=== PATIENT | female | born 1980 | race Caucasian/White ===

== ENCOUNTER 2018-06-23 22:02 | Inpatient (IN) | payer BC ==
[~2018-06-23 22:02] MED LIST: Bupivacaine/Epinephrine 0.25% 30 ML VIAL ONE
[2018-06-23 22:55] LABS: Amnisure Internal Control QC ACCEPTABLE (ACCEPTABLE); Amnisure Test No Membranes Rupture (No Rupture)
[2018-06-23] MEDS ORDERED: Ondansetron PF 4 MG/2 ML Vial IVP PRN (23:15)
[2018-06-23] MEDS ORDERED: Acetaminophen 500 MG TAB PO PRN (23:15)
[2018-06-23] MEDS ORDERED: Lidocaine 1% (PF) 30 ML VIAL SC PRN (23:15)
[2018-06-23] MEDS ORDERED: NS / Oxytocin 40 units/1000ml 1,000 ML IV PRN (23:15)
[2018-06-23] MEDS ORDERED: Promethazine HCl 25 MG/ML VIAL IM PRN (23:15)
[2018-06-23 23:25] LABS: Hemoglobin 12.4 g/dL (12.0-16.0); Mean Corpuscular HGB CONC 33.9 g/dL (32.0-36.0); Mean Corpuscular Hemoglobin 30.2 pg (27.0-31.0); Mean Corpuscular Volume 88.9 fL (78.0-98.0); Mean Platelet Volume 8.8 fL (7.4-10.4); Platelet Count 197 thou/uL (130-400); Red Blood Cell (RBC) Count 4.11 mill/uL (4.20-5.40); White Blood Cell (WBC) Count 10.8 thou/uL (4.8-10.8)
[2018-06-23 23:28] VITALS: BMI 32.4
[2018-06-23] MEDS ORDERED: Fentanyl 4 mcg/Bup 0.1% Cadd 100 ML ONE (23:33)
[2018-06-23 23:55] LABS: HBSAg Index 0.36 S/CO (0-0.99); Hep B Surf Ag Non-Reactive S/CO (NonReactive); Syphilis Antibody Nonreactive (Nonreactive); Syphilis Antibody Index 0.03 S/CO (<1.00 Non-Reactive)
[2018-06-24] MEDS: Lactated Ringer's 1,000 ML IV SCH ×2 (00:32→14:06)
[2018-06-24] MEDS ORDERED: Promethazine HCl 25 MG/ML VIAL IM PRN (00:33)
[2018-06-24] MEDS ORDERED: Acetaminophen 325 MG TAB PO PRN (00:33)
[2018-06-24] MEDS ORDERED: ePHEDrine/0.9% NaCl/PF SYRINGE 50 mg/10 ml SLOW IVP PRN (00:33)
[2018-06-24] MEDS ORDERED: Ondansetron PF 4 MG/2 ML Vial IVP PRN ×2 (00:33→08:27)
[2018-06-24] MEDS ORDERED: Naloxone HCl 0.4 mg/ml Vial IVP PRN ×2 (00:33)
[2018-06-24] MEDS ORDERED: Lactated Ringer's 500 ML IV PRN (00:33)
[2018-06-24] MEDS ORDERED: Eucerin (Mineral Oil/Petrolatum,White) 30 gm Jar TOP PRN (00:33)
[2018-06-24] MEDS ORDERED: diphenhydrAMINE 50 MG/ML VIAL IVP PRN (00:33)
[2018-06-24] MEDS ORDERED: Communication Order-Pharmacy FS SCH (00:45)
[2018-06-24] MEDS ORDERED: Fentanyl 4 mcg/Bupivacaine 0.1% Cassette 100 ML EPIDURAL SCH (00:45)
--- NOTE | 2018-06-24 03:09 | PDOC.LDHP ---
Labor and Delivery H&P Chief complaint: contractions HPI: 37yo at 39w6d by LMP c/o painful contractions, unsure if LOF. Good FM. Current gestational age (weeks): 39 Due date: 06/25/18 Dating criteria: last menstrual period Grav: 3 Para: 1 Current complications: none Abnormal US findings: No Past Medical History: denies Current medications: pre-lai vitamins Previous surgical history: none Allergies/Adverse Reactions: Allergies Allergy/AdvReac Type Severity Reaction Status Date / Time No Known Allergies Allergy Unverified 01/19/17 03:40 Social history: none - Physical Exam Vital signs reviewed and normal: yes General: NAD Heart: RRR Lungs: CTAB Abdomen: gravid Extremeties: no edema FHT: category 1 [place] contractions every: 5-7min - Vaginal Exam cm dilated: 9 Effacement: 90% Station: 0 (arom clear) - OB Labs Blood type: O RH: positive Antibody Screen: negative HIV: negative RPR: negative HEPSAg: negative 1 hour GCT: negative GBS: negative Urine drug screen: negative Rubella: immune - Assessment L&D Assessment: term patient in labor - Plan Plan: admit to L&D, labor augmentation if indicated, informed consent obtained, anesthesia consult for pain management
[2018-06-24] MEDS ORDERED: Fentanyl 4 mcg/Bup 0.1% Cadd 100 ML ONE (05:15)
--- NOTE | 2018-06-24 06:17 | PDOC.OPDEL ---
OB Operative/Delivery Note Delivery Dr/Surgeon: Jacque Assist: n/a Pre-Delivery Diagnosis: active labor Procedure/Post Delivery Dx: spontaneous vaginal delivery Weeks gestation: 39 Anesthesia: epidural - Findings A Sex: male - 1 min: 8 - 5 min: 9 - Additional Findings/Plan Placenta delivered: spontaneous Repaired Obstetrical Laceration: 1st degree (repaired with single stitch 3-0 vicryl, excess hymenal tissue trimmed at 2 oclock and hemostatic with 3-0 vicryl ) Estimated blood loss: 200cc, qbl pending Post delivery plan: routine recovery
[2018-06-24] MEDS ORDERED: Bisacodyl 10 MG SUPP PR PRN (08:27)
[2018-06-24] MEDS ORDERED: Milk Of Magnesia 30 ML UDCUP PO PRN (08:27)
[2018-06-24] MEDS ORDERED: Preparation H Ointment 28 GM TUBE PR PRN (08:27)
[2018-06-24] MEDS ORDERED: diphenhydrAMINE 25 MG CAP PO PRN (08:27)
[2018-06-24] MEDS ORDERED: NS / Oxytocin 40 units/1000ml 1,000 ML IV SCH (08:27)
[2018-06-24] MEDS ORDERED: Lanolin Ointment 7 GM TUBE TOP PRN (08:27)
[2018-06-24] MEDS ORDERED: Adacel (T-DAP) 0.5 ML VIAL IM ONE (08:27)
[2018-06-24] MEDS ORDERED: HYDROcodone/Acetaminophen 5/325 mg Tablet PO PRN ×2 (08:27)
[2018-06-24] MEDS ORDERED: Benzocaine/Menthol 20-0.5% 60 ML CAN TOP PRN (08:27)
[2018-06-24] MEDS ORDERED: Ferrous Sulfate 325 MG TAB PO SCH (08:30)
[2018-06-24] MEDS ORDERED: NS / Oxytocin 40 units/1000ml 1,000 ML ONE (08:32)
[2018-06-24] MEDS: Ibuprofen 800 MG TAB PO SCH ×2 (09:18→17:11)
[2018-06-24] MEDS: Prenatal Vitamin 1 TAB PO SCH (09:18)
[2018-06-24] MEDS: Docusate Calcium (SURFAK) 240 MG CAP PO SCH ×2 (09:18→21:18)
[2018-06-24] MEDS: Ferrous Sulfate 325 MG TAB PO SCH (17:12)
--- NOTE | 2018-06-25 06:41 | PDOC.PP ---
Post Progress Note Post Day #: 1 PO intake tolerated: yes Flatus: yes Ambulation: yes Vital Signs (12 hours) Temp Pulse Resp BP Pulse Ox 06/25/18 04:55 98.2 F 73 18 108/58 L 06/25/18 00:00 97.5 F L 73 18 126/65 06/24/18 19:50 97.6 F 73 20 113/66 98 Weight Weight 226 lb - Physical Examination General: NAD Cardiovascular: no m/r/g, RRR Respiratory: clear to auscultation bilaterally, non-labored breathing Abdominal: + bowel sounds, lochia, no distention Extremities: negative homans (B) Neurological: no gross focal deficits Psychiatric: A&Ox3, normal affect Result Diagrams: 06/23/18 20:45 Additional Labs: Post Labs Blood Type O POSITIVE 06/23/18 20:45 Hep Bs Antigen Non-Reactive S/CO (NonReactive) 06/23/18 20:45 - Assessment/Plan doing well desires am josi guzman
[2018-06-25] MEDS: Ferrous Sulfate 325 MG TAB PO SCH (07:19)
[2018-06-25 08:19] VITALS: BP 112/56; TEMP 98.4
[2018-06-25] MEDS: Docusate Calcium (SURFAK) 240 MG CAP PO SCH (09:30)
[2018-06-25] MEDS: Ibuprofen 800 MG TAB PO SCH ×2 (09:30)
[2018-06-25] MEDS: Prenatal Vitamin 1 TAB PO SCH (09:30)
== END 2018-06-25 12:10 | disposition home or self-care (01) | DRG 807 ==
LOC: L&D/OP 22:02 → L&D 22:55 → 3SW 06-24 09:10
PROVIDERS: ADMIT Student in an Organized Health Care Education/Training Program; ATTEND Student in an Organized Health Care Education/Training Program
PROC: 10E0XZZ Delivery of Products of Conception, External Approach (ICD-10-PCS; principal; 2018-06-23)
PROC: 0HQ9XZZ Repair Perineum Skin, External Approach (ICD-10-PCS; 2018-06-23)
DX: O70.0 First degree perineal laceration during delivery (principal); Z37.0 Single live birth; Z3A.39 39 weeks gestation of pregnancy
CPT/HCPCS: 51702; 84112; 85027; 86780; 86850; 86900; 86901; 87340; 99285; J2001

== ENCOUNTER 2021-02-10 10:08 | Outpatient (CLI) | payer BC | END 2021-02-10 10:09 | disposition home or self-care (01) | LOC: BICMAMMO 10:08 | PROVIDERS: ATTEND Student in an Organized Health Care Education/Training Program | DX: N63.20 Unspecified lump in the left breast, unspecified quadrant (principal); N63.10 Unspecified lump in the right breast, unspecified quadrant | CPT/HCPCS: 77066; G0279 ==